=== PATIENT | female | born 1995 | race Caucasian/White ===

== ENCOUNTER 2016-11-20 18:44 | Emergency (ER) | payer MEDICAID ==
[2016-11-20 19:11] VITALS: BP 118/90
--- NOTE | 2016-11-20 20:39 | EDM.PDOCBH ---
ED HPI GENERAL MEDICAL PROBLEM - General Chief Complaint: Drug or Alcohol Abuse Stated Complaint: CHEST PAINS Time Seen by Provider: 11/20/16 19:45 Source of Information: Reports: Patient History Limitations: Reports: No Limitations - History of Present Illness INITIAL COMMENTS - FREE TEXT/NARRATIVE: Patient complains that she has had "strep in my legs" all summer and episodes of being paralyzed and acutely SOB when trying to sleep. She describes "I swear I was for a minute"..."I could see my body leaving my body" from a 3rd person perspective. She indicates that her detacher diagnosed her with strep based upon a strep culture of her throat when asymptomatic and an ASO titer (but unknown results). However, she did not fill her Rx for PCN until recently. She denies any recent n/v, fevers, chills (but states she is always cold), night sweats. She repeatedly expressed a great concern about her heart, due to her "untreated strep". She states that she had an episode of chest pain (which has been a frequent accompanying complaint) this evening 3 hours prior, which last the duration of the episode. Episodes have been accompanied by acral parethesias. 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 She endorses depressed mood, decreased motivation/decreased energy, ahedonia, difficulty concentrating, problems staying asleep (no initial/terminal insomnia). She tends to let her mind wander and dwell on negative/sad things in her life. She has had similar anxiety symptoms in the past, but not as severe. She states she has been sober since in treatment, starting 11/12/2016. She entered treatment after having her son removed from her custody due to substance abuse. - Related Data Allergies Allergy/AdvReac Type Severity Reaction Status Date / Time No Known Allergies Allergy Verified 11/20/16 19:11 Past Medical History Other Psychiatric History: METH USE Dermatologic History: Reports: Psoriasis - Infectious Disease History Other Infectious Disease History: STREP IN WOUND/RASH GENERAL BODY AREA PER PT Social & Family History - Tobacco Use Smoking Status *Q: Unknown Ever Smoked ED ROS GENERAL - Review of Systems Review Of Systems: See Below Constitutional: Denies: Fever, Chills, Malaise, Weakness, Fatigue, Night Sweats , Weight Loss, Weight Gain HEENT: Reports: No Symptoms. Denies: Throat Pain, Throat Swelling Respiratory: Reports: No Symptoms Cardiovascular: Reports: Chest Pain, Blood Pressure Problem, Lightheadedness, Palpitations. 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 Denies: Seizure, Syncope, Trouble Speaking, Difficulty Walking, Change in Speech, Gait Disturbance Psychiatric: Reports: Anxiety, Depression. Denies: Confusion, Hallucinations, Suicidal Ideation Hematologic/Lymphatic: Reports: No Symptoms Immunologic: Reports: No Symptoms ED EXAM, BEHAVIORAL HEALTH - Physical Exam Exam: See Below Exam Limited By: No Limitations General Appearance: Alert, WD/WN, No Apparent Distress, Anxious, Other (tearful) Eye Exam: Bilateral Eye: EOMI, PERRL Ears: Normal External Exam, Normal Canal, Normal TMs Nose: Normal Inspection, Normal Mucosa, No Blood Throat/Mouth: Normal Inspection, Normal Lips, Normal Gums, Normal Oropharynx, Normal Voice, No Airway Compromise Head: Atraumatic, Normocephalic Neck: Normal Inspection, Supple, Non-Tender, Full Range of Motion. No: Lymphadenopathy (R), Lymphadenopathy (L) Respiratory/Chest: No Respiratory Distress, Lungs Clear, Normal Breath Sounds, No Accessory Muscle Use, Chest Non-Tender Cardiovascular: Normal Peripheral Pulses, Regular Rate, Rhythm, No Edema, No Gallop, No JVD, No Murmur, No Rub GI/Abdominal: Normal Bowel Sounds, Soft, Non-Tender, No Organomegaly Extremities: Normal Inspection, Normal Range of Motion, Non-Tender, No Pedal Edema, Normal Capillary Refill Neurological: Alert, CN II-XII Intact, Normal Cognition, Normal Gait, Normal Reflexes, No Motor/Sensory Deficits, Oriented x 3. No: Normal Mood/Affect, Abn 2 Pt Discrimination, Babinski, Tremor Psychiatric: Alert, Normal Cognition, Oriented, Depressed Mood, Flat Affect, Tearful, Poor Eye Contact. No: Incoherent, Restless, Agitated, Disoriented, Inattentive, Non-Communicative, Uncooperative, Withdrawn, Flight of Ideas, Homicidal Thoughts, Zoroastrianism Delusions, Suicidal Plan, Suicidal Thoughts, Tangential Thoughts, Auditory Hallucinations, Visual Hallucinations, Grandiose Thoughts, Pressured Speech, Paranoid Thoughts, Threatening Behavior Skin Exam: Warm, Dry, Intact, Normal color, No rash, Other (No splinter hemorrhages ) EKG INTERPRETATION EKG Date: 11/20/16 EKG Interpretation Comments: Normal COURSE, BEHAVIORAL HEALTH COMP - Course Vital Signs: Last Vital Signs Temp 36.0 C 11/20/16 19:04 Pulse 104 H 11/20/16 19:04 Resp 16 11/20/16 19:04 BP 118/90 11/20/16 19:04 Pulse Ox 99 11/20/16 19:04 Orders, Labs, Meds: Laboratory Tests 11/20/16 11/20/16 Range/Units 20:00 20:43 C-Reactive Protein 0.38 H (0.0-0.3) mg/dL Free T4 0.80 (0.76-1.46) ng/dL TSH, Ultra Sensitive 2.494 (0.358-3.740) uIU/mL Urine HCG, Qual Negative Departure - Departure Time of Disposition: 21:42 Disposition: DC/Tfer to Other 70 Clinical Impression: Panic attack, Drug abuse - Discharge Information Instructions: Panic Attacks, [id number] Referrals: PCP,None [Primary Care Provider] - Forms: ED Department Discharge Additional Instructions: Follow up with psychiatrist and psychologist/therapist. Zoloft once a day. Seroquel at bedtime. If symptoms recur/persist return to ED. - Problem List Review Problem List Initiated/Reviewed/Updated: Yes - Assessment/Plan Assessment:: The history of strep in her legs, the positive throat culture with no symptoms , etc. doesn't make much sense, but are currently unable to contact her detacher to determine what was actually done and what prompted the workup/ treatment. I spoke w/ Randy Galicia, and they are fine w/ tx of depression, but requested that she NOT be treated with trazodone (which would otherwise seem preferable), rather with Seroquel for sleep. Her symptoms are fairly typical for a panic attack, and given her endorsement of depression as well as what seems to be recurrent anxiety disorder previously well controlled with Zoloft treatment is warranted. As she is currently in a residential drug treatment program, getting her evaluated by a psychiatrist for consideration of medications could take weeks, if not having to wait until after her completion. Given how symptomatic she is now, will treat with Zoloft 50mg, with Seroquel 25mg QHS. Given lack of systemic symptoms, in spit of IVDU, workup for bacterial endocarditis as an etiology is likely low yield, but in face of slightly elevated CRP would seem prudent.
== END 2016-11-20 21:46 | disposition other institution (70) ==
LOC: JP.ED 18:44
DX: F41.0 Panic disorder [episodic paroxysmal anxiety] (principal); F19.10 Other psychoactive substance abuse, uncomplicated; L40.9 Psoriasis, unspecified
CPT/HCPCS: 36415; 81025; 84439; 84443; 86140; 87040; 87077; 93005; 99285-25